=== PATIENT | female | born 1990 | race African-American/Black ===

== ENCOUNTER 2019-02-19 12:51 | Emergency (ER) | payer MEDICAID, OTHER ==
[~2019-02-19] VITALS: Ht 172.7 cm; Wt 85.0 kg
[2019-02-19 13:39] LABS: BASOPHILS % 0.9 % (0.0-2.0); HEMATOCRIT. 37.3 % (36.0-48.0); HEMOGLOBIN. 12.6 g/dL (12.0-16.0); MEAN CORPUSCULAR HEMOGLOBIN 30.5 pg (28.0-32.0); MEAN CORPUSCULAR VOLUME 90.5 fL (81.0-99.0); MEAN PLATELET VOLUME 7.7 fl (7.4-10.4); MONOCYTES % 6.7 % (2.0-8.0); NEUTROPHILS % 52.4 % (40.0-76.0); PLATELET 244 x1000/uL (130-400); RED BLOOD CELL COUNT 4.12 mill/uL (4.2-5.4); RED CELL DISTRIBUTION WIDTH 14.9 % (11.6-14.6)
[2019-02-19 13:46] LABS: CHLORIDE 113 mEq/L (98-107)
[2019-02-19 15:20] VITALS: BP 112/65
== END 2019-02-19 17:04 | disposition home or self-care (01) ==
LOC: ER 16:20
DX: R06.02 Shortness of breath (principal); M79.89 Other specified soft tissue disorders
CPT/HCPCS: 36415; 71045; 81025; 83880; 84484; 85379; 93005; 93970; 99284